=== PATIENT | female | born 1965 ===

== ENCOUNTER 2017-03-04 12:48 | Emergency (ER) | payer MEDICAID ==
[2017-03-04 13:02] VITALS: BMI 31.1
[2017-03-04 13:04] VITALS: TEMP 98.9
[2017-03-04] MEDS ORDERED: Sodium Chloride 0.9% 1,000 ML IV STA (13:27)
--- NOTE | 2017-03-04 13:28 | ED PDOC ---
Arrival/HPI - General Chief Complaint: Abdominal Pain Time Seen by Provider: 03/04/17 13:27 Historian: Patient - History of Present Illness Narrative History of Present Illness (Text): 03/04/17 13:41 51 yo female w/o significant PMHx come inf or evaluation of epigastric pain for past 3 weeks. Pt reports, pain is localized, non-radiating and associated with mild nausea. Pt also complaints of diffuse lower back pain and diffuse B/L legs pain for past few months, intermittent. Otherwise, pt denies fever, chills, headache, dizziness, neck pain, CP, SOB, dyspnea, diaphoresis, palpitation, V/D , back pain, UTI sx, denies saddle anesthesia, incontinence, denies weakness, sensory or vascular deficits to B/L LEs. Ambulate to Ed for evaluation, not in any apparent distress. Past Medical History - Provider Review Nursing Documentation Reviewed: Yes - Travel History Have you recently traveled outside [place] w/in the past 3 mons?: No - Past History Past History: No Previous - Infectious Disease Hx of Infectious Diseases: None - Tetanus Immunization Tetanus Immunization: Unknown - Cardiac Hx Hypertension: Yes - Pulmonary Hx Asthma: Yes - Psychiatric Hx Depression: Yes Hx Emotional Abuse: No Hx Physical Abuse: No Hx Substance Use: No - Surgical History Hx Section: Yes (x2) - Anesthesia Hx Anesthesia: Yes Hx Anesthesia Reactions: No Hx Malignant Hyperthermia: No - Suicidal Assessment Feels Threatened In Home Enviroment: No Family/Social History - Physician Review Nursing Documentation Reviewed: Yes Family/Social History: No Known Family HX Smoking Status: Never Smoked Hx Alcohol Use: No Hx Substance Use: No Hx Substance Use Treatment: No Allergies/Home Meds Allergies/Adverse Reactions: Allergies No Known Allergies Allergy (Verified 01/03/16 18:20) Home Medications: Home Meds Medication Instructions Recorded Confirmed Amlodipine Besylate [Norvasc] 5 mg PO DAILY 01/03/16 03/04/17 Review of Systems - Review of Systems Constitutional: Normal Eyes: Normal ENT: Normal Respiratory: Normal Cardiovascular: Normal Gastrointestinal: Normal, Abdominal Pain, Nausea. absent: Stool Changes, Constipation, Diarrhea, Vomiting, Hematochezia, Hematemesis, Food Intolerance Genitourinary Female: Normal Musculoskeletal: Myalgias (B/L legs pain) Skin: Normal. absent: Rash Neurological: Normal Endocrine: Normal Hemo/Lymphatic: Normal Psychiatric: Normal Physical Exam Vital Signs Reviewed: Yes Vital Signs Temp Pulse Resp BP Pulse Ox 03/04/17 15:21 89 17 150/78 98 03/04/17 13:04 98.9 F 92 H 18 155/82 H 96 Temperature: Afebrile Blood Pressure: Normal Pulse: Regular Respiratory Rate: Normal Appearance: Positive for: Well-Appearing, Non-Toxic, Comfortable Pain Distress: None Mental Status: Positive for: Alert and Oriented X 3 - Systems Exam Conjunctiva: Present: Normal Mouth: Present: Moist Mucous Membranes. No: Drooling Neck: Present: Trachea Midline. No: JVD, Bruit Respiratory/Chest: Present: Clear to Auscultation, Good Air Exchange. No: Respiratory Distress, Accessory Muscle Use Cardiovascular: Present: Regular Rate and Rhythm, Normal S1, S2. No: Murmurs Abdomen: Present: Tenderness (mild epigastric), Normal Bowel Sounds. No: Distention, Peritoneal Signs, Rebound, Guarding Back: Present: Paraspinal Tenderness (diffuse mild lumbar paraspinal tenderness. No midline tenderness.). No: CVA Tenderness, Midline Tenderness Upper Extremity: Present: Normal Inspection, NORMAL PULSES, Neurovascularly Intact. No: Edema, Deformity Lower Extremity: Present: NORMAL PULSES, Normal ROM, Neurovascularly Intact. No : Edema, CALF TENDERNESS (B/L), Deformity Neurological: Present: GCS=15, Speech Normal Skin: Present: Warm, Dry, Normal Color. No: Rashes Psychiatric: Present: Alert, Oriented x 3, Normal Insight, Normal Concentration Medical Decision Making ED Course and Treatment: 03/04/17 Pt was OBS in ED for 2 hours and remained stable. Pt reports, ' feels better:" after ED treatment. Afebrile, hemodynamicaly stable. non-toxic. Tolerate Po well in ED. PulseOx 96% RA Neck: supple, (-) JVD ENT: No acute findings Lungs: CTA B/L, BS equal B/L. CVS: (+)S1S2, reg. Abd: benign, (-) guarding, (-) rebound, (-) localized tenderness. Back: (-) CVA tenderness. Neuorlogicaly intact. Blood work, UA results review and appears normal. Pt has clinical findings c/w epigastric pain, lumbar radiculopathy. Pt advised. ref. to f/u with PMD and GI in 2 -3 days for re-eavl. return to ED if any worsening or new changes. - Lab Interpretations Lab Results: 03/04/17 14:00 03/04/17 14:00 Lab Results 03/04/17 14:00: Sodium 141, Potassium 4.4, Chloride 104, Carbon Dioxide 29, Anion Gap 12, BUN 13, Creatinine 0.6, Est GFR ( Amer) > 60, Est GFR (Non- Af Amer) > 60, Random Glucose 92, Calcium 8.9, Total Bilirubin 0.4, AST 29, ALT 29, Alkaline Phosphatase 56, Total Protein 7.2, Albumin 4.0, Globulin 3.3, Albumin/Globulin Ratio 1.2, Lipase 58 03/04/17 14:00: Urine Color Yellow, Urine Appearance Clear, Urine pH 6.0, Ur Specific [place] >= 1.030, Urine Protein Negative, Urine Glucose (UA) Negative, Urine Ketones Negative, Urine Blood Negative, Urine Nitrate Negative, Urine Bilirubin Negative, Urine Urobilinogen 0.2, Ur Leukocyte Esterase Negative, Urine HCG, Qual Negative 03/04/17 14:00: PT 11.0, INR 1.02, APTT 27.5 03/04/17 14:00: WBC 5.3, RBC 4.29, Hgb 11.9 L, Hct 35.0 L, MCV 81.6, MCH 27.7, MCHC 34.0, RDW 13.6, Plt Count 234, MPV 10.5, Gran % 53.0, Lymph % (Auto) 36.7 H , [place] % (Auto) 8.0 H, Eos % (Auto) 1.9, Baso % (Auto) 0.4, Gran # 2.79, Lymph # 1.9, [place] # 0.4, Eos # 0.1, Baso # 0.02 Interpretation: No clinic. lab abnormalty - Medication Orders Current Medication Orders: Discontinued Medications Famotidine (Pepcid) 20 mg IVP STAT STA Stop: 03/04/17 13:28 Last Admin: 03/04/17 14:04 Dose: 20 mg Sodium Chloride (Sodium Chloride 0.9%) 1,000 mls @ 1,000 mls/hr IV .Q1H STA Stop: 03/04/17 14:26 Last Admin: 03/04/17 14:04 Dose: 1,000 mls/hr Ketorolac Tromethamine (Toradol) 30 mg IVP STAT STA Stop: 03/04/17 13:28 Last Admin: 03/04/17 14:04 Dose: 30 mg Metoclopramide HCl (Reglan) 10 mg IVP STAT STA Stop: 03/04/17 13:28 Last Admin: 03/04/17 14:04 Dose: 10 mg Disposition/Present on Arrival - Present on Arrival Any Indicators Present on Arrival: No History of DVT/PE: No History of Uncontrolled Diabetes: No Urinary Catheter: No History of Decub. Ulcer: No History Surgical Site Infection Following: None - Disposition Have Diagnosis and Disposition been Completed?: Yes Diagnosis: Epigastric pain, Lumbar radiculopathy Disposition: HOME/ ROUTINE Disposition Time: 15:34 Patient Plan: Discharge Condition: STABLE Discharge Instructions (ExitCare): Epigastric Pain (ED), Lumbar Radiculopathy ( ED) Print Language: [email or web address] Additional Instructions: Encourage fluids Light duty to lower back, avoid lifting heavy, bending forwards, etc. follow up with PMD in 2-3 days for re-evaluation. Return to ED if any worsening or new changes. Prescriptions: Pantoprazole Sodium [Protonix] 40 mg PO DAILY #20 tablet. traMADol [Ultram] 50 mg PO TID #7 tab Referrals: Alec Laird MD [Primary Care Provider] - Follow up with primary Forms: [employer] ([place]ian), WORK NOTE
[2017-03-04 14:14] LABS: BASO # 0.02 K/mm3 (0.0-2.0); BASO % 0.4 % (0.0-3.0); EOS # 0.1 (0.0-0.7); EOS % 1.9 % (1.5-5.0); GRAN # 2.79 (1.4-6.5); LYMPH # 1.9 (1.2-3.4); LYMPH % 36.7 % (22.0-35.0); MEAN CELL VOLUME 81.6 fl (80.0-105.0); MEAN CORPUSCULAR HEMOGLOBIN 27.7 pg (25.0-35.0); MEAN PLATELET VOLUME 10.5 fl (7.0-11.0); MONO # 0.4 (0.1-0.6); RED CELL DISTRIBUTION WIDTH 13.6 % (11.5-14.5); WHITE BLOOD COUNT 5.3 10^3/ul (4.5-11.0)
[2017-03-04 14:15] LABS: URINE BILIRUBIN NEGATIVE (NEGATIVE); URINE BLOOD NEGATIVE (NEGATIVE); URINE GLUCOSE (UA) NEGATIVE (NEGATIVE); URINE KETONE NEGATIVE (NEGATIVE); URINE LEUKOCYTE ESTERASE NEGATIVE Leu/uL (NEGATIVE); URINE PROTEIN NEGATIVE mg/dL (<30 mg/dL); URINE UROBILINOGEN 0.2 E.U./dL (<1 E.U./dL)
[2017-03-04 14:23] LABS: URINE APPEARANCE CLEAR (CLEAR); URINE COLOR YELLOW (YELLOW)
[2017-03-04 14:25] LABS: INR 1.02 (0.93-1.08); PARTIAL THROMBOPLASTIN TIME 27.5 Seconds (23.7-30.8)
[2017-03-04 14:27] LABS: ALB/GLOB RATIO 1.2 (1.1-1.8); ALKALINE PHOSPHATASE 56 U/L (38-126); ALT/SGPT 29 U/L (7-56); AST/SGOT 29 U/L (14-36); BILIRUBIN,TOTAL 0.4 mg/dL (0.2-1.3); BLOOD UREA NITROGEN 13 mg/dL (7-21); CALCIUM 8.9 mg/dL (8.4-10.5); CARBON DIOXIDE 29 mmol/L (21-33); CHLORIDE 104 mmol/L (98-107); GFR AFRICAN-AMERICAN > 60; GLUCOSE,RANDOM 92 mg/dL (70-110); LIPASE 58 U/L (23-300); POTASSIUM 4.4 mmol/L (3.6-5.0); SODIUM 141 mmol/L (132-148); TOTAL PROTEIN 7.2 g/dL (5.8-8.3)
[2017-03-04 15:22] VITALS: RESP 17
[2017-03-04 15:47] VITALS: BP 147/80; PULSE 85; O2SAT 99
== END 2017-03-04 15:46 | disposition home or self-care (01) ==
LOC: ED 12:48
DX: M54.16 Radiculopathy, lumbar region (principal); R10.13 Epigastric pain
CPT/HCPCS: 80053; 81003; 83690; 84703; 85025; 85610; 85730; 96374; 96375; 99285; J1885; J2765; J7040

== ENCOUNTER 2017-11-18 10:17 | Day surgery (SDC) | payer MEDICAID ==
[2017-11-18 10:56] VITALS: BMI 31.1
[2017-11-18] MEDS ORDERED: Sodium Chloride 0.9% 1,000 ML IV SCH (12:00)
[2017-11-18 12:39] VITALS: BP 131/71; PULSE 61; RESP 18; TEMP 97.8; O2SAT 98
== END 2017-11-18 13:16 | disposition home or self-care (01) ==
LOC: ENDO 10:17
PROVIDERS: ATTEND Internal Medicine
DX: D12.5 Benign neoplasm of sigmoid colon (principal); K63.89 Other specified diseases of intestine; K62.1 Rectal polyp; K64.8 Other hemorrhoids; R19.4 Change in bowel habit; I10 Essential (primary) hypertension; J45.909 Unspecified asthma, uncomplicated; F32.89 Other specified depressive episodes; Z80.0 Family history of malignant neoplasm of digestive organs; Z80.1 Family history of malignant neoplasm of trachea, bronchus and lung; Z80.8 Family history of malignant neoplasm of other organs or systems
CPT/HCPCS: 45385; 84703; 88305; J7030; J7040

== ENCOUNTER 2018-08-09 11:26 | Outpatient (CLI) | payer MEDICAID | END 2018-08-09 11:27 | disposition home or self-care (01) | LOC: RAD 11:26 ==